=== PATIENT | female | born 1950 | race Caucasian/White ===

== ENCOUNTER 2017-11-07 12:37 | Outpatient (CLI) | payer MEDICARE | END 2017-11-07 12:38 | disposition critical access hospital (66) | LOC: EMS 12:37 | PROVIDERS: ATTEND Surgery | DX: M25.552 Pain in left hip (principal); W22.8XXA Striking against or struck by other objects, initial encounter; Y93.K9 Activity, other involving animal care | CPT/HCPCS: A0425; A0427 ==

== ENCOUNTER 2017-11-07 12:56 | Emergency (ER) | payer BC, MEDICARE ==
--- NOTE | 2017-11-07 13:01 | ED Physician Documentation ---
PD HPI LOWER EXT INJURY - Stated complaint Stated Complaint: L HIP PX - History obtained from History obtained from: Patient - History of Present Illness PD HPI LOW EXT INJURY LOCATION: Left, Hip Type of injury: Blunt / blow (The patient was walking a horse whose feet got tangled in the lead rope or something like that and so the horse started kicking and lurching and push the patient into a fence post. She was beside the horse and got pushed left hip into the post and has pain in the hip and pelvis. She did bite her lip. She denies injury to the head. She is having some pain in the left ribs.) Where injury occurred: Home Timing - onset: Today Timing - duration: Hours (1) Timing - details: Abrupt onset, Still present Improved by: No: Rest Worsened by: Moving, Palpating Associated symptoms: No: Weakness, Numbness Similar symptoms before: Has not had sx before Recently seen: Not recently seen Review of Systems Constitutional: denies: Fever Nose: denies: Rhinorrhea / runny nose, Congestion Throat: denies: Sore throat Cardiac: reports: Chest pain / pressure. denies: Palpitations Respiratory: denies: Cough GI: reports: Nausea (after pain meds from medics (Fentanyl)). denies: Abdominal Pain Neurologic: denies: Focal weakness, Numbness, Near syncope, Headache PD PAST MEDICAL HISTORY - Past Medical History Cardiovascular: None Respiratory: None Neuro: None Endocrine/Autoimmune: None - Allergies Allergies/Adverse Reactions: Allergies Allergy/AdvReac Type Severity Reaction Status Date / Time No Known Drug Allergies Allergy Verified 11/07/17 13:06 PD ED PE NORMAL - Vitals Vital signs reviewed: Yes - General General: Alert and oriented X 3, Well developed/nourished, Other (appears in pain with any pelvic/left hip movement.) - HEENT HEENT: Atraumatic (head not tender. Small lac inner upper lip. She denies teeth feeling chipped nor loose. ) - Neck Neck: Supple, no meningeal sign, No bony TTP, No adenopathy - Cardiac Cardiac: RRR, No murmur - Respiratory Respiratory: Clear bilaterally, Other (mild tender without deformity left mid ribs. ) - Abdomen Abdomen: Normal bowel sounds, Soft, Non tender - Female Female : Deferred - Rectal Rectal: Deferred - Back Back: No CVA TTP, No spinal TTP - Extremities Extremities: Other (left hip and pelvic area markedly tender with light palpation or slight movement. ) - Neuro Neuro: Alert and oriented X 3, No motor deficit, No sensory deficit, Normal speech Results - Rads (name of study) chest Radiology: Prelim report reviewed (no acute injury) pelvis Radiology: Prelim report reviewed (ramus and possible sacral fracture.) pelvic/abd CT Radiology: Prelim report reviewed (pelvic fracture with some bleeding/hematoma. ) head CT Radiology: Prelim report reviewed (no acute) PD MEDICAL DECISION MAKING - ED course Complexity details: reviewed results, re-evaluated patient (pelvic binding with sheet done. ), considered differential, d/w patient, d/w family Departure - Departure Disposition: 02 Transfer Acute Care Hosp Clinical Impression: Pelvic hematoma in female Pelvic ring fracture Qualifiers: Encounter type: initial encounter Fracture type: closed Qualified Code(s): S32.810A - Multiple fractures of pelvis with stable disruption of pelvic ring, initial encounter for closed fracture Condition: Stable Record reviewed to determine appropriate education?: Yes
[2017-11-07] MEDS ORDERED: SODIUM CHLORIDE 0.9% 1,000 ML IV ONE ×2 (13:11→14:59)
[2017-11-07] MEDS ORDERED: ONDANSETRON 4 MG/2 ML VIAL IVP STA ×2 (13:11→14:02)
[2017-11-07] MEDS ORDERED: KETOROLAC 15 MG/ML VIAL IVP STA (13:12)
[2017-11-07] MEDS ORDERED: ACETAMINOPHEN 1,000 MG/100 ML 100 ML IV STA (14:02)
[2017-11-07 14:25] LABS: BASOPHILS # (AUTO) 0.1 10^3/uL (0.0-0.1); BASOPHILS % (AUTO) 0.6 %; EOSINOPHILS % (AUTO) 0.1 %; HGB - HEMOGLOBIN 10.9 g/dL (12.0-16.0); LYMPHOCYTES # (AUTO) 0.6 10^3/uL (1.5-3.5); LYMPHOCYTES % (AUTO) 5.5 %; MEAN CORPUSCULAR HEMOGLOBIN 30.9 pg (27.0-31.0); MEAN CORPUSCULAR HGB CONC 34.1 g/dL (32.0-36.0); MEAN CORPUSCULAR VOLUME 90.6 fL (81.0-99.0); MEAN PLATELET VOLUME 6.9 fL (7.9-10.8); MONOCYTES # (AUTO) 0.7 10^3/uL (0.0-1.0); MONOCYTES % (AUTO) 6.6 %; NEUTROPHILS # (AUTO) 9.8 10^3/uL (1.5-6.6); NEUTROPHILS % (AUTO) 87.2 %; PLT - PLATELET COUNT 200 10^3/uL (130-450); RED BLOOD COUNT 3.52 10^6/uL (4.20-5.40); RED CELL DISTRIBUTION WIDTH 13.2 % (12.0-15.0); WHITE BLOOD COUNT 11.2 x10^3/uL (4.8-10.8)
[2017-11-07] MEDS ORDERED: IOPAMIDOL-300 100 ML VIAL ONE (14:33)
--- NOTE | 2017-11-07 14:38 | XRAY Report ---
Reason: struck into post by horse Procedure Date: 11/07/2017 Accession Number: [id number] / [id number] Procedure: XR - Hip w/Pelvis 2-3V LT CPT Code: FULL RESULT: EXAM: LEFT HIP AND PELVIS RADIOGRAPHY. EXAM DATE: 11/07/2017 02:05 PM. HISTORY: Struck into post by horse. COMPARISONS: 07/19/2011 4:52 PM. TECHNIQUE: 1 view of the pelvis and 1 view of the hip. FINDINGS: Radiographs are limited in positioning. There is contour abnormality along the superior margin of the right sacrum and there are right superior pubic rami fractures as well as an inferior pubic ramus fracture on the right. Compared to the CT in 2011, there is diastases at the pubic symphysis. Evaluation of the right femoral neck is limited and fracture is not excluded, however none is seen. IMPRESSION: Fracture pattern is concerning for an open book pelvic fracture. CRITICAL RESULT: The findings were discussed with Dr. Zee on 11/07/2017 at 2:30 PM. RADIA
[2017-11-07 14:40] LABS: ALBUMIN 3.4 g/dL (3.2-5.5); ALBUMIN/GLOBULIN RATIO 1.4 (1.0-2.2); BILIRUBIN,TOTAL 0.7 mg/dL (0.2-1.0); CALCIUM 8.3 mg/dL (8.5-10.3); CREATININE 0.7 mg/dL (0.4-1.0); MAGNESIUM 1.7 mg/dL (1.7-2.8); TOTAL PROTEIN 5.9 g/dL (6.7-8.2)
--- NOTE | 2017-11-07 15:11 | CT Report ---
Reason: injury, with headache and nausea Procedure Date: 11/07/2017 Accession Number: [id number] / [id number] Procedure: CT - Head W/O CPT Code: FULL RESULT: EXAM: CT HEAD EXAM DATE: 11/07/2017 02:58 PM. CLINICAL HISTORY: Injury, with headache and nausea. COMPARISON: None. TECHNIQUE: Multiaxial CT images were obtained from the foramen magnum to the vertex. Reformats: Sagittal and coronal. IV contrast: None. In accordance with CT protocol optimization, one or more of the following dose reduction techniques were utilized for this exam: automated exposure control, adjustment of mA and/or KV based on patient size, or use of iterative reconstructive technique. FINDINGS: Parenchyma: No intraparenchymal hemorrhage. No evidence of mass, midline shift, or CT findings of infarction. Sesay-white differentiation is distinct. Extraaxial Spaces: Normal for age. No subdural or epidural collections identified. Ventricles: Normal in size and position. Sinuses and Orbits: Imaged paranasal sinuses, orbits, and mastoids show no significant abnormality. Bones: No evidence of fracture or calvarial defect. Other: None. IMPRESSION: No acute intracranial CT abnormality. RADIA
[2017-11-07 15:21] VITALS: BP 107/65
[2017-11-07] MEDS ORDERED: diphenhydrAMINE INJ 50 MG/ML VIAL IVP STA (15:28)
--- NOTE | 2017-11-07 15:35 | CT Report ---
Reason: pelvic fracture on xray Procedure Date: 11/07/2017 Accession Number: [id number] / [id number] Procedure: CT - Abdomen/Pelvis W/ CPT Code: FULL RESULT: EXAM: CT ABDOMEN AND PELVIS EXAM DATE: 11/07/2017 02:58 PM. CLINICAL HISTORY: Fall, pain. COMPARISONS: None. TECHNIQUE: Routine helical CT imaging was performed through the abdomen and pelvis. IV contrast: Isovue-300 100mL. Enteric contrast: No. Reconstructions: Coronal and sagittal. In accordance with CT protocol optimization, one or more of the following dose reduction techniques were utilized for this exam: automated exposure control, adjustment of mA and/or KV based on patient size, or use of iterative reconstructive technique. FINDINGS: Lung Bases: Mild bibasilar apparent dependent changes may represent contusion in the setting of rib fractures. Liver: No traumatic injury. Gallbladder/Bile Ducts: Unremarkable. Spleen: Atraumatic. Pancreas: Normal. Adrenal Glands: Normal. Kidneys: Normal. No masses or hydronephrosis. Peritoneal Cavity/Bowel: Normal. No free fluid, free air or adenopathy. No masses or acute inflammatory process. The appendix is well visualized and normal. Pelvic Organs: The bladder is displaced by hematoma without evidence of rupture. Hematoma is retroperitoneal. Vasculature: There is hematoma formation with abnormal appearance of all vessels in the internal iliac distribution towards the posterior division of the left internal iliac artery. Bones: Nondisplaced right tenth rib fracture, acute. Suspect nondisplaced rib fractures of the right posterior eighth and ninth ribs. Minimally displaced acute fracture of the posterolateral seventh right rib. Minimally displaced posterior left tenth, ninth, and eighth rib fractures. Minimally displaced right L3 transverse process fracture, questionably nondisplaced right L4 transverse process fracture versus congenital finding. Question nondisplaced rib fracture of the right seventh rib. Old nonunited fracture of the right eleventh rib and old healed fracture of the posterior right twelfth rib. Other: Early hematoma along the left external and common iliac artery and iliacus with the hematoma tracking upward of the enlarged left psoas muscle. IMPRESSION: Fracture of the left hemisacrum and left superior and inferior pubic rami, unstable configuration. Hematoma formation in the left hemipelvis extraperitoneally with suspicion of arterial injury in the left internal iliac artery, especially posterior division. Bilateral rib fractures, likely 8 through 10 on the right and 8 through 10 on the left. CRITICAL RESULT: The findings were discussed with Dr. Zee on 11/07/2017 at 3:10 PM and again at 3:33 PM. RADIA
[2017-11-07 15:49] LABS: BILIRUBIN,URINE NEGATIVE (NEGATIVE); GLUCOSE, URINE (UA) NEGATIVE (NEGATIVE); KETONES,URINE (UA) 15 mg/dL (NEGATIVE); LEUKOCYTE ESTERASE, URINE NEGATIVE (NEGATIVE); NITRITE,URINE NEGATIVE (NEGATIVE); OCCULT BLOOD,URINE SMALL (NEGATIVE); PROTEIN,URINE NEGATIVE (NEGATIVE); UROBILINOGEN,URINE 0.2 (NORMAL) E.U./dL (NORMAL)
[2017-11-07 16:04] LABS: BACTERIA,URINE None Seen /HPF (None Seen); CLARITY,URINE CLEAR (CLEAR); SQUAMOUS EPITHELIAL CELL,UR RARE Squamous (<= Few)
[2017-11-07] MEDS ORDERED: IOPAMIDOL-300 100 ML VIAL IVP ONE (16:32)
--- NOTE | 2017-11-07 20:16 | XRAY Report ---
Reason: LT SIDE CHEST PAIN Procedure Date: 11/07/2017 Accession Number: [id number] / [id number] Procedure: XR - Chest 1 View X-Ray CPT Code: 69813 FULL RESULT: EXAM: CHEST RADIOGRAPHY EXAM DATE: 11/07/2017 02:05 PM. CLINICAL HISTORY: Chest pain COMPARISON: XR CHEST 1 VIEWS 07/19/2011 5:08 PM. TECHNIQUE: 1 view. FINDINGS: Lungs/Pleura: No focal opacities evident. No pleural effusion. No pneumothorax. Mediastinum: Normal heart size. There is mild thoracic aortic tortuosity. Other: There are remote right-sided rib fractures. Metallic radiopacity projecting over the left aspect of the upper thoracic spine is presumably extrinsic to the patient. IMPRESSION: No acute intrathoracic plain film abnormality. RADIA
== END 2017-11-07 16:21 | disposition short-term general hospital (02) ==
LOC: EDUNIT# → ED 12:56
DX: S32.039A Unspecified fracture of third lumbar vertebra, initial encounter for closed fracture (principal); S22.43XA Multiple fractures of ribs, bilateral, initial encounter for closed fracture; S32.810A Multiple fractures of pelvis with stable disruption of pelvic ring, initial encounter for closed fracture; S01.511A Laceration without foreign body of lip, initial encounter; W55.12XA Struck by horse, initial encounter; Y93.K1 Activity, walking an animal; Y92.009 Unspecified place in unspecified non-institutional (private) residence as the place of occurrence of the external cause
CPT/HCPCS: 36415; 51702; 70450; 71045; 73502; 74177; 80053; 81001; 83690; 83735; 85025; 96361; 96374; 96375; 96376; 99284; J0131; J1200; Q9967; 81003; 87086

== ENCOUNTER 2017-12-19 17:11 | Outpatient (CLI) | payer MEDICARE | END 2017-12-19 17:12 | disposition critical access hospital (66) | LOC: EMS 17:11 | PROVIDERS: ATTEND Surgery | DX: R42 Dizziness and giddiness (principal) | CPT/HCPCS: A0425; A0429 ==

== ENCOUNTER 2017-12-19 17:28 | Emergency (ER) | payer MEDICARE ==
--- NOTE | 2017-12-19 18:33 | ED Physician Documentation ---
PD HPI HEENT - Stated complaint Stated Complaint: vertigo - Chief complaint Chief Complaint: Neuro - History obtained from History obtained from: Patient - History of Present Illness Timing - onset: Today (when got up) Timing - duration: Hours Timing - details: Abrupt onset, Still present Location: Other (vertigo with spinning clockwise) Associated symptoms: Congestion, Rhinorrhea. No: Fever, Facial swelling, Headache, Cough Similar symptoms before: Has not had sx before Recently seen: Surgery (hip surgery a month ago, doing okay with that. Was on Lovenox prophylactically and just finished it yesterday. Resumed gabapentin yesterday.) Review of Systems Constitutional: denies: Fever, Chills Ears: reports: Loss of hearing (ear feels full). denies: Ear pain Nose: reports: Rhinorrhea / runny nose, Congestion, Sinus pressure / pain Throat: denies: Sore throat Cardiac: denies: Chest pain / pressure, Palpitations Respiratory: denies: Dyspnea, Cough GI: reports: Nausea, Vomiting (with the vertigo). denies: Diarrhea : denies: Dysuria Skin: denies: Rash, Lesions Musculoskeletal: denies: Neck pain, Back pain PD PAST MEDICAL HISTORY - Past Medical History Past Medical History: Yes Cardiovascular: None Respiratory: None Neuro: Migraines Endocrine/Autoimmune: HyPOthyroidism GI: None DIRECTOR OF TESTING: None : None HEENT: None Psych: None Musculoskeletal: None Derm: None - Past Surgical History Past Surgical History: Yes Ortho: Other /DIRECTOR OF TESTING: Hysterectomy - Present Medications Home Medications: Ambulatory Orders Medication Instructions Recorded Confirmed Levothyroxine [Synthroid] 11/07/17 Nortriptyline [Pamelor] 11/07/17 Amoxicillin 500 mg PO TID #20 capsule 12/19/17 Cetirizine [ZyrTEC] 10 mg PO DAILY #15 tablet 12/19/17 Dexamethasone [Decadron] 4 mg PO DAILY #5 tablet 12/19/17 Meclizine [Antivert] 25 mg PO Q6H PRN #30 tablet 12/19/17 Ondansetron Odt [Zofran] 4 mg TL Q6H PRN #10 tablet 12/19/17 - Allergies Allergies/Adverse Reactions: Allergies Allergy/AdvReac Type Severity Reaction Status Date / Time pain meds AdvReac Unknown Uncoded 12/19/17 17:38 - Social History Does the pt smoke?: No Smoking Status: Never smoker Does the pt drink ETOH?: Yes Does the pt have substance abuse?: No - Immunizations Immunizations are current?: Yes - POLST Patient has POLST: No PD ED PE NORMAL - Vitals Vital signs reviewed: Yes - General General: Alert and oriented X 3, Well developed/nourished, Other (appears uncomfortable with any head movement. ) - HEENT HEENT: Atraumatic, PERRL, EOMI (with nystagmus to the right on eye movement. ), Pharynx benign. No: Ears normal (left is okay. Right ear with redness and fluid behing TM.) - Neck Neck: Supple, no meningeal sign, No adenopathy, No bruit - Cardiac Cardiac: RRR, No murmur - Respiratory Respiratory: No respiratory distress, Clear bilaterally - Abdomen Abdomen: Soft, Non tender - Derm Derm: Normal color, Warm and dry - Extremities Extremities: No deformity, No tenderness to palpate, Normal ROM s pain, No calf tenderness / cord - Neuro Neuro: Alert and oriented X 3, piano teacher 2-12 intact, No motor deficit, No sensory deficit, Normal speech, Other Eye Opening: Spontaneous Motor: Obeys Commands Verbal: Oriented GCS Score: 15 Results - Vitals Vitals: Oxygen O2 Source Room air PD MEDICAL DECISION MAKING - ED course Complexity details: re-evaluated patient (got to bathroom and back slowly, with some vertigo still on movement. But is less that it was. ), considered differential (seems positional vertigo. No headache. had resumes gabapentin recently but had taken it before without vertigo. ), d/w patient Departure - Departure Disposition: 01 Home, Self Care Clinical Impression: Positional vertigo Otitis media Qualifiers: Otitis media type: suppurative Chronicity: acute Laterality: right Recurrence: not specified as recurrent Spontaneous tympanic membrane rupture: without spontaneous rupture Qualified Code(s): H66.001 - Acute suppurative otitis media without spontaneous rupture of ear drum, right ear Condition: Stable Record reviewed to determine appropriate education?: Yes Instructions: ED Otitis Media Acute Adult, ED Vertigo Unspecified Prescriptions: Amoxicillin 500 mg PO TID #20 capsule Cetirizine [ZyrTEC] 10 mg PO DAILY #15 tablet Dexamethasone [Decadron] 4 mg PO DAILY #5 tablet Meclizine [Antivert] 25 mg PO Q6H PRN #30 tablet PRN Reason: Vertigo Ondansetron Odt [Zofran] 4 mg TL Q6H PRN #10 tablet PRN Reason: Nausea / Vomiting Comments: Drink lots of fluids. Meclizine 12-1/2-25 mg every 6-8 hours if needed for dizziness. This seems to be in her ear dizziness presume related to the sinus and ear infection. I would anticipated improving over the next couple of days as the infection and sinus pressure are being treated. Amoxicillin 3 times a day for a week for the infection. Decadron anti-inflammatory for sinus and inner ear inflammation. Cetirizine to decrease congestion. Continue your other usual medications. Recheck if not improving over the next couple of days. Activity position as tolerated and move slowly. Discharge Date/Time: 12/19/17 21:09
[2017-12-19] MEDS ORDERED: ONDANSETRON ODT 4 MG TABLET TL STA (19:04)
[2017-12-19] MEDS ORDERED: AMOXICILLIN 250 MG CAPSULE PO STA (19:04)
[2017-12-19] MEDS ORDERED: MECLIZINE 12.5 MG TABLET PO STA ×2 (19:04→20:41)
[2017-12-19] MEDS ORDERED: DEXAMETHASONE 10 MG/ML VIAL PO STA (19:04)
[2017-12-19 20:54] VITALS: BP 125/92
== END 2017-12-19 21:09 | disposition home or self-care (01) ==
LOC: EDUNIT# → ED 17:28
DX: H81.10 Benign paroxysmal vertigo, unspecified ear (principal); H66.001 Acute suppurative otitis media without spontaneous rupture of ear drum, right ear; E03.9 Hypothyroidism, unspecified
CPT/HCPCS: 99283; 99284; A9270; Q0162

== ENCOUNTER 2018-03-26 10:09 | Emergency (ER) | payer MEDICARE ==
[2018-03-26] MEDS ORDERED: SODIUM CHLORIDE 0.9% 1,000 ML IV ONE (12:19)
[2018-03-26] MEDS ORDERED: PROMETHAZINE INJ 12.5 MG in SODIUM CHLORIDE 0.9% 50 ML IV STA (12:19)
[2018-03-26] MEDS ORDERED: ATROPINE 0.4 MG/ML VIAL IVP ONE (12:20)
--- NOTE | 2018-03-26 12:21 | ED Physician Documentation ---
History of Present Illness - Stated complaint Stated Complaint: DIZZY/VOMITING - Chief complaint Chief Complaint: Abd Pain - History obtained from History obtained from: Patient, Family (spouse) - History of Present Illness Timing: How many days ago (few) - Treatment prior to arrival Treatment prior to arrival: Scopolamine patch and sublingual Zofran, without relief. - Additonal information Additional information: The patient is a 67-year-old female with a history of vertigo who presents with worsening vertiginous symptoms despite use of scopolamine patch and sublingual Zofran. She has been vomiting constantly for the past 2 days. She denies fever, abdominal pain, diarrhea, or headache. Her symptoms are worse with movement of her head. She reports upper respiratory symptoms the past few days, with nasal congestion and slight cough. She thinks that is what set off her vertiginous symptoms. Review of Systems Constitutional: denies: Fever Eyes: denies: Decreased vision, Photophobia Ears: denies: Ear pain, Tinnitus/ringing Nose: reports: Congestion Throat: denies: Sore throat Cardiac: denies: Chest pain / pressure Respiratory: reports: Cough. denies: Dyspnea GI: reports: Nausea, Vomiting. denies: Abdominal Pain, Diarrhea : denies: Dysuria Skin: denies: Rash Musculoskeletal: denies: Back pain Neurologic: denies: Focal weakness, Numbness, Headache PD PAST MEDICAL HISTORY - Past Medical History Cardiovascular: None Respiratory: None Neuro: Migraines Endocrine/Autoimmune: HyPOthyroidism GI: None HIDE CURER: None : None HEENT: None Psych: None Musculoskeletal: None Derm: None - Past Surgical History Past Surgical History: Yes Ortho: Other /HIDE CURER: Hysterectomy - Present Medications Home Medications: Ambulatory Orders Medication Instructions Recorded Confirmed Levothyroxine [Synthroid] 1 tab PO QDAC 11/07/17 03/26/18 Nortriptyline [Pamelor] 50 mg PO DAILY 11/07/17 03/26/18 Ondansetron Odt [Zofran] 4 mg TL Q6H PRN #10 tablet 12/19/17 03/26/18 Ondansetron Odt [Zofran] 4 mg TL Q6H PRN #10 tablet 03/26/18 Scopolamine 1 each TD DAILY 03/26/18 03/26/18 - Allergies Allergies/Adverse Reactions: Allergies Allergy/AdvReac Type Severity Reaction Status Date / Time pain meds AdvReac Unknown Uncoded 03/26/18 11:02 - Social History Does the pt smoke?: No Smoking Status: Never smoker Does the pt drink ETOH?: Yes Does the pt have substance abuse?: No - Immunizations Immunizations are current?: Yes - POLST Patient has POLST: No PD ED PE NORMAL - Vitals Vital signs reviewed: Yes (normal) - General General: Alert and oriented X 3, Well developed/nourished, Other (Holding her head still.) - HEENT HEENT: Atraumatic, PERRL, EOMI, Ears normal, Pharynx benign, Other (No nystagmus.) - Neck Neck: Supple, no meningeal sign, No adenopathy - Cardiac Cardiac: RRR - Respiratory Respiratory: No respiratory distress, Clear bilaterally - Abdomen Abdomen: Soft, Non tender - Back Back: No CVA TTP - Derm Derm: No rash - Extremities Extremities: No edema, No calf tenderness / cord - Neuro Neuro: Alert and oriented X 3, No motor deficit, No sensory deficit Results - Vitals Vitals: Oxygen O2 Source Room air - EKG (time done) 10:30 Rate: Rate (enter#) (86) Rhythm: NSR [place]: Normal Intervals: Normal MA QRS: Normal Ischemia: Normal ST segments Computer interpretation: Agree with computer - Labs Labs: Laboratory Tests 03/26/18 12:35 Sodium 134 L Potassium 4.0 Chloride 101 Carbon Dioxide 23 Anion Gap 10.0 BUN 12 Creatinine 0.6 Estimated GFR (MDRD) 100 Glucose 93 Calcium 9.6 PD MEDICAL DECISION MAKING - ED course Complexity details: reviewed results, re-evaluated patient, considered differential, d/w patient, d/w family ED course: The patient's presentation is most consistent with positional vertigo, with vomiting. Her presentation does not suggest a cerebellar cause of her vertiginous symptoms. Treatment in the emergency department included administration of normal saline 1 L IV, atropine 0.4 mg IV, and Phenergan 12.5 mg IV. Her symptoms completely resolved with the above treatment. Prior to discharge she demonstrates ability to ambulate without nausea or vertigo. I discussed with her and her the diagnosis, symptomatic treatment and outpatient follow-up, as well as potentially worrisome signs or symptoms that should prompt reevaluation in the emergency department. She is being discharged with prescription for Zofran. Departure - Departure Disposition: 01 Home, Self Care Clinical Impression: Positional vertigo Condition: Stable Instructions: ED Vertigo Unspecified Follow-Up: Xavier Perkins MD [Primary Care Provider] - Prescriptions: Ondansetron Odt [Zofran] 4 mg TL Q6H PRN #10 tablet PRN Reason: Nausea / Vomiting Comments: Drink plenty of fluids. Use scopolamine patch as previously prescribed. You can use sublingual Zofran as prescribed if needed for nausea. Follow-up with your primary physician within 1-2 weeks. Call to schedule an appointment. Return to the emergency department if you develop persistent vomiting, or otherwise worsening symptoms. Discharge Date/Time: 03/26/18 13:35
[2018-03-26 12:56] LABS: CALCIUM 9.6 mg/dL (8.5-10.3); CREATININE 0.6 mg/dL (0.4-1.0)
[2018-03-26 13:27] VITALS: BP 115/75
== END 2018-03-26 13:35 | disposition home or self-care (01) ==
LOC: ED 10:09
DX: H81.10 Benign paroxysmal vertigo, unspecified ear (principal); E03.9 Hypothyroidism, unspecified
CPT/HCPCS: 36415; 80048; 93005; 96365; 96375; 99283; J7040

== ENCOUNTER 2020-02-28 11:06 | Emergency (ER) | payer MEDICARE ==
[2020-02-28 11:51] LABS: BASOPHILS % (AUTO) 0.5 %; EOSINOPHILS % (AUTO) 0.2 %; HGB - HEMOGLOBIN 14.4 g/dL (12.0-16.0); MEAN CORPUSCULAR HEMOGLOBIN 30.4 pg (27.0-31.0); MEAN CORPUSCULAR HGB CONC 32.8 g/dL (32.0-36.0); MEAN CORPUSCULAR VOLUME 92.6 fL (81.0-99.0); MEAN PLATELET VOLUME 9.1 fL (7.9-10.8); MONOCYTES # (AUTO) 0.5 10^3/uL (0.0-1.0); MONOCYTES % (AUTO) 11.7 %; NEUTROPHILS # (AUTO) 2.6 10^3/uL (1.5-6.6); NEUTROPHILS % (AUTO) 62.1 %; PLT - PLATELET COUNT 223 10^3/uL (130-450); RED BLOOD COUNT 4.74 10^6/uL (4.20-5.40); RED CELL DISTRIBUTION WIDTH 12.3 % (12.0-15.0); WHITE BLOOD COUNT 4.1 x10^3/uL (4.8-10.8)
[2020-02-28 12:03] LABS: ALBUMIN 4.6 g/dL (3.2-5.5); ALBUMIN/GLOBULIN RATIO 1.5 (1.0-2.2); BILIRUBIN,TOTAL 0.9 mg/dL (0.2-1.0); CALCIUM 9.8 mg/dL (8.5-10.3); CREATININE 0.9 mg/dL (0.4-1.0); TOTAL PROTEIN 7.6 g/dL (6.7-8.2)
--- NOTE | 2020-02-28 12:22 | XRAY Report ---
PROCEDURE: Chest 1 View X-Ray INDICATIONS: Chest pain TECHNIQUE: One view of the chest was acquired. COMPARISON: 11/07/2017 chest single view. FINDINGS: Surgical changes and devices: None. Lungs and pleura: No pleural effusions or pneumothorax. Lungs are clear. Mediastinum: Mediastinal contours appear normal. Heart size is normal. Bones and chest wall: No suspicious bony lesions. Healed rib fractures overlying the right scapula m id body. Overlying soft tissues appear unremarkable. IMPRESSION: Excellent inspiratory volume, no pneumonia found. Suspect presence of several healed rib fractures la teral right upper chest. No acute trauma found. Reviewed by: Jad Nicole MD on 02/28/2020 12:21 PM PST Approved by: Jad Nicole MD on 02/28/2020 12:21 PM PST Station ID: [id number]
[2020-02-28] MEDS ORDERED: MAGNESIUM CITRATE 296 ML BOTTLE PO STA (12:27)
[2020-02-28] MEDS ORDERED: SODIUM CHLORIDE 0.9% 1,000 ML IV STA ×2 (12:27)
[2020-02-28] MEDS ORDERED: ONDANSETRON 4 MG/2 ML VIAL IVP STA (12:28)
[2020-02-28] MEDS ORDERED: MECLIZINE 12.5 MG TABLET PO STA (12:28)
--- NOTE | 2020-02-28 12:34 | ED Physician Documentation ---
History of Present Illness - Stated complaint Stated Complaint: DIZZY/IRREGULAR HEART BEAT - Chief complaint Chief Complaint: Cardiac - History obtained from History obtained from: Patient - History of Present Illness Timing: Today Pain level max: 0 Pain level now: 0 - Additonal information Additional information: 69-year-old female presents to the emergency department complaining of intermittent palpitations for the past several months. She states she feels a fluttering in her chest. Nothing seems to make it better or worse. She also complains of vertigo. This has been an intermittent problem since suffering a head injury several years ago along with rib fractures. She states that the room feels like it is spinning, worse with movement and better with rest. No headache. No fever. No neck or back pain. Patient also complains of constipation for the past 2 weeks. She states her diet has not been very good recently and that she has a history of chronic constipation. No fevers. No chills. Some nausea but no vomiting. Review of Systems Ten Systems: 10 systems reviewed and negative Constitutional: denies: Fever, Chills Nose: denies: Rhinorrhea / runny nose, Congestion Throat: denies: Sore throat Cardiac: reports: Palpitations. denies: Chest pain / pressure Respiratory: denies: Cough Skin: denies: Rash Musculoskeletal: denies: Neck pain, Back pain Neurologic: denies: Headache PD PAST MEDICAL HISTORY - Past Medical History Past Medical History: Yes Cardiovascular: Atrial fibrillation Respiratory: None Neuro: Migraines, Other Endocrine/Autoimmune: HyPOthyroidism GI: None BEER RUNNER: None : None HEENT: None Psych: None Musculoskeletal: None Derm: None Other Past Medical History: concussion, 7 rib fxs, pelvis fx from horse accident 2 years ago. - Past Surgical History Past Surgical History: Yes Ortho: Other /BEER RUNNER: Hysterectomy - Present Medications Home Medications: Ambulatory Orders Medication Instructions Recorded Confirmed Levothyroxine [Synthroid] 1 tab PO QDAC 11/07/17 03/26/18 Nortriptyline [Pamelor] 50 mg PO DAILY 11/07/17 03/26/18 Ondansetron Odt [Zofran] 4 mg TL Q6H PRN #10 tablet 12/19/17 03/26/18 Ondansetron Odt [Zofran] 4 mg TL Q6H PRN #10 tablet 02/18/19 Scopolamine 1 each TD DAILY 03/26/18 03/26/18 Meclizine HCl [Antivert] 25 - 50 mg PO Q6H PRN #30 tablet 02/28/20 - Allergies Allergies/Adverse Reactions: Allergies Allergy/AdvReac Type Severity Reaction Status Date / Time pain meds AdvReac Unknown Uncoded 02/28/20 11:10 - Social History Does the pt smoke?: No Smoking Status: Never smoker Does the pt drink ETOH?: Yes Does the pt have substance abuse?: No - Immunizations Immunizations are current?: Yes - POLST Patient has POLST: No PD ED PE NORMAL - Vitals Vital signs reviewed: Yes - General General: Alert and oriented X 3, No acute distress - HEENT HEENT: Moist mucous membranes - Neck Neck: Supple, no meningeal sign - Cardiac Cardiac: RRR, Strong equal pulses - Respiratory Respiratory: No respiratory distress, Clear bilaterally - Abdomen Abdomen: Soft, Other (Diffusely tender to palpation without peritoneal signs) - Derm Derm: Warm and dry - Extremities Extremities: No edema - Neuro Neuro: Alert and oriented X 3 Results - Vitals Vitals: Vital Signs - 24 hr 02/28/20 02/28/20 02/28/20 11:10 12:39 13:00 Temperature 36.6 C 37.1 C Heart Rate 82 70 59 L Respiratory 18 16 19 Rate Blood Pressure 127/76 121/79 113/73 O2 Saturation 97 98 100 02/28/20 14:02 Temperature 36.4 C L Heart Rate 55 L Respiratory 16 Rate Blood Pressure 117/71 O2 Saturation 99 Oxygen O2 Source Room air - EKG (time done) 1116 Rate: Rate (enter#) (75) Rhythm: NSR [place]: Normal Intervals: Normal LA QRS: Normal Ischemia: Normal ST segments Computer interpretation: Agree with computer - Labs Labs: Laboratory Tests 02/28/20 02/28/20 02/28/20 11:30 11:30 11:39 WBC 4.1 L RBC 4.74 Hgb 14.4 Hct 43.9 MCV 92.6 MCH 30.4 MCHC 32.8 RDW 12.3 Plt Count 223 MPV 9.1 Neut # (Auto) 2.6 Lymph # (Auto) 1.0 L [place] # (Auto) 0.5 Eos # (Auto) 0.0 Baso # (Auto) 0.0 Absolute Nucleated RBC 0.00 Nucleated RBC % 0.0 Sodium Potassium Chloride Carbon Dioxide Anion Gap BUN Creatinine Estimated GFR (MDRD) Glucose Calcium Phosphorus 3.1 Magnesium 2.1 Total Bilirubin AST ALT Alkaline Phosphatase Troponin I High Sens Total Protein Albumin Globulin Albumin/Globulin Ratio Lipase TSH 0.53 Free T4 1.42 02/28/20 02/28/20 11:39 11:39 WBC RBC Hgb Hct MCV MCH MCHC RDW Plt Count MPV Neut # (Auto) Lymph # (Auto) [place] # (Auto) Eos # (Auto) Baso # (Auto) Absolute Nucleated RBC Nucleated RBC % Sodium 136 Potassium 3.7 Chloride 99 L Carbon Dioxide 27 Anion Gap 10.0 BUN 14 Creatinine 0.9 Estimated GFR (MDRD) 62 L Glucose 104 H Calcium 9.8 Phosphorus Magnesium Total Bilirubin 0.9 AST 55 H ALT 68 H Alkaline Phosphatase 67 Troponin I High Sens < 2.3 L Total Protein 7.6 Albumin 4.6 Globulin 3.0 Albumin/Globulin Ratio 1.5 Lipase 35 TSH Free T4 - Rads (name of study) cxr Radiology: Prelim report reviewed, EMP read contemporaneously, See rad report (no acute abnormality) CT abdomen and pelvis Radiology: Prelim report reviewed, EMP read contemporaneously, See rad report PD MEDICAL DECISION MAKING - ED course Complexity details: reviewed results, considered differential, d/w patient ED course: Unclear etiology the patient's symptoms other than PVCs causing the palpitations. Given IV fluids and meclizine. 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 Horizontal nystagmus to the right and positive Hallpike to the right. No evidence of stroke. No neurological deficits. NIH stroke scale of 0. She does have a left-sided ovarian cyst on CT, she will follow this up as an outpatient with her doctor. Patient is well-appearing, nontoxic. Afebrile. Patient has an appointment with her body press operator on Monday. Patient counseled regarding signs and symptoms for which I believe and urgent re-evaluation would be necessary. Patient with good understanding of and agreement to plan and is comfortable going home at this time This document was made in part using voice recognition software. While efforts are made to proofread this document, sound alike and grammatical errors may occur. IMPRESSION: 1. No acute abnormality is identified in the abdomen or pelvis. Normal appendix. Moderate stool is seen throughout the colon. 2. Left ovarian cyst has increased in size when compared to the prior CT from 11/07/2017, now measuring 5.1 cm in maximum dimension. Recommend pelvic ultrasound for evaluation. Departure - Departure Disposition: 01 Home, Self Care Clinical Impression: Premature ventricular contraction, Palpitations, Vertigo Constipation Qualifiers: Constipation type: unspecified constipation type Qualified Code(s): K59.00 - Constipation, unspecified Condition: Good Instructions: ED Constipation, ED Palpitations Follow-Up: Quentin Espinosa MD [Primary Care Provider] - Within 1 week Prescriptions: Meclizine HCl [Antivert] 25 - 50 mg PO Q6H PRN #30 tablet PRN Reason: Vertigo Comments: You are having premature ventricular contractions on the heart monitor. This is causing the fluttering in your chest. Follow-up with your body press operator, Dr. Kilgore on Monday as scheduled to discuss medication for this. You also have a 5 cm ovarian cyst that needs follow-up with a pelvic ultrasound. This is slightly larger than 2 years ago when it was present on your CT scan. Drink plenty of water. Avoid caffeine, stress. Return if you worsen. Discharge Date/Time: 02/28/20 14:30
[2020-02-28] MEDS ORDERED: IOVERSOL 320 100 ML VIAL IVP ONE ×2 (12:49→13:26)
[2020-02-28 12:59] LABS: MAGNESIUM 2.1 mg/dL (1.7-2.8); PHOSPHORUS 3.1 mg/dL (2.5-4.6)
[2020-02-28 13:09] LABS: THYROID STIMULATING HORMONE 0.53 uIU/mL (0.34-5.60)
[2020-02-28 13:11] LABS: FREE T4 (FREE THYROXINE) 1.42 ng/dL (0.58-1.64)
[2020-02-28] MEDS ORDERED: MAGNESIUM SULFATE 2 GRAM 2 GM/50 ML BAG IV ONE (13:18)
--- NOTE | 2020-02-28 13:31 | CT Report ---
PROCEDURE: Abdomen/Pelvis W INDICATIONS: diffuse abd pain CONTRAST: IV CONTRAST: Isovue 370 ml: 100 PO CONTRAST: *NO PO CONTRAST TECHNIQUE: After the administration of intravenous contrast, 5 mm thick sections acquired from the diaphragms to the symphysis. 5 mm thick coronal and sagittal reformats were acquired. For radiation dose reducti on, the following was used: automated exposure control, adjustment of mA and/or kV according to juanpablo ent size. COMPARISON: CT abdomen/pelvis 11/07/2017 FINDINGS: Image quality: Excellent. ABDOMEN: Lung bases: Lung bases are clear. Heart size is normal. Solid organs: Liver and spleen are normal in size and enhancement. A 7 mm hypoattenuating lesion ad jacent to the falciform ligament is too small to characterize, but most likely represents a cyst. Gal lbladder appears normal. Biliary system is non dilated. Pancreas enhances normally. No adrenal nod ules. Kidneys demonstrate normal size and enhancement, without hydronephrosis. Peritoneum and bowel: Bowel loops demonstrate normal wall thickness and caliber. Moderate stool is seen throughout the colon. Normal appendix. No free fluid or air. Nodes and vessels: No retroperitoneal or mesenteric adenopathy by size criteria. Aorta and inferior vena cava are normal in size. Miscellaneous: No ventral hernias. PELVIS: Genitourinary: Bladder wall thickness is normal. Status post hysterectomy. A left ovarian cyst mayi ures 5.1 x 4.0 cm, increased in size when compared to the CT from 11/07/2017 when it measured 3.7 x 2. 6 cm. Miscellaneous: No inguinal hernias or adenopathy. Bones: No suspicious bony lesions. No vertebral body compression fractures mild healed fracture def ormities are seen in the bilateral lower ribs. There is S-shaped curvature of the lumbar spine with p rogressive degenerative changes when compared to the prior CT from 11/07/2017. Metallic fixation hardw are is seen in the left pelvis extending to the left sacrum. IMPRESSION: 1. No acute abnormality is identified in the abdomen or pelvis. Normal appendix. Moderate stool is s een throughout the colon. 2. Left ovarian cyst has increased in size when compared to the prior CT from 11/07/2017, now measuri ng 5.1 cm in maximum dimension. Recommend pelvic ultrasound for evaluation. Reviewed by: Cooper Oviedo MD on 02/28/2020 1:29 PM PST Approved by: Cooper Oviedo MD on 02/28/2020 1:29 PM PST Station ID: [id number]
[2020-02-28 14:03] VITALS: BP 117/71
== END 2020-02-28 14:30 | disposition home or self-care (01) ==
LOC: ED 11:06
DX: I49.3 Ventricular premature depolarization (principal); R42 Dizziness and giddiness; K59.00 Constipation, unspecified; N83.202 Unspecified ovarian cyst, left side
CPT/HCPCS: 36415; 71045; 74177; 80053; 83690; 83735; 84100; 84439; 84443; 84484; 85025; 93005; 96365; 96375; 99284; A9270; Q9967

== ENCOUNTER 2020-07-03 08:00 | Outpatient (CLI) | payer MEDICARE | END 2020-07-03 23:59 | disposition home or self-care (01) | LOC: LAB.N 08:00 | PROVIDERS: ATTEND Family Medicine | DX: J02.9 Acute pharyngitis, unspecified (principal); Z20.822 Contact with and (suspected) exposure to COVID-19 ==

== ENCOUNTER 2020-09-08 08:00 | Outpatient (CLI) | payer MEDICARE ==
[2020-09-08 13:15] LABS: BASOPHILS % (AUTO) 0.9 %; EOSINOPHILS # (AUTO) 0.1 10^3/uL (0.0-0.7); HCT - HEMATOCRIT 40.2 % (37.0-47.0); HGB - HEMOGLOBIN 13.1 g/dL (12.0-16.0); LYMPHOCYTES # (AUTO) 1.3 10^3/uL (1.5-3.5); LYMPHOCYTES % (AUTO) 36.4 %; MEAN CORPUSCULAR HEMOGLOBIN 30.8 pg (27.0-31.0); MEAN CORPUSCULAR HGB CONC 32.6 g/dL (32.0-36.0); MEAN CORPUSCULAR VOLUME 94.4 fL (81.0-99.0); MEAN PLATELET VOLUME 9.6 fL (7.9-10.8); MONOCYTES # (AUTO) 0.4 10^3/uL (0.0-1.0); MONOCYTES % (AUTO) 10.2 %; NEUTROPHILS # (AUTO) 1.8 10^3/uL (1.5-6.6); NEUTROPHILS % (AUTO) 50.5 %; PLT - PLATELET COUNT 229 10^3/uL (130-450); RED BLOOD COUNT 4.26 10^6/uL (4.20-5.40); RED CELL DISTRIBUTION WIDTH 13.6 % (12.0-15.0); WHITE BLOOD COUNT 3.5 x10^3/uL (4.8-10.8)
[2020-09-08 13:40] LABS: ALBUMIN 4.1 g/dL (3.2-5.5); ALBUMIN/GLOBULIN RATIO 1.3 (1.0-2.2); ALKALINE PHOSPHATASE 69 IU/L (42-121); ALT ALANINE AMINOTRANSFERASE 63 IU/L (10-60); AST ASPARTATE AMINOTRANSFERASE 47 IU/L (10-42); BILIRUBIN,TOTAL 0.6 mg/dL (0.2-1.0); BUN - BLOOD UREA NITROGEN 20 mg/dL (6-20); CALCIUM 9.4 mg/dL (8.5-10.3); CARBON DIOXIDE - CO2 27 mmol/L (21-32); CHLORIDE 102 mmol/L (101-111); CHOL/HDL RATIO 4.2 (<4.4); CHOLESTEROL 239 mg/dL; CREATININE 0.7 mg/dL (0.4-1.0); GFR - MDRD 83 (>89); GLUCOSE 83 mg/dL (70-100); HDL CHOLESTEROL 57 mg/dL; LDL CHOLESTEROL,CALCULATED 166 mg/dL; LDL/HDL RATIO 2.9 (<4.4); POTASSIUM 4.1 mmol/L (3.5-5.0); SODIUM 138 mmol/L (135-145); TOTAL PROTEIN 7.2 g/dL (6.7-8.2); TRIGLYCERIDES 80 mg/dL; VLDL CHOLESTEROL 16 mg/dL
[2020-09-08 13:51] LABS: THYROID STIMULATING HORMONE 4.91 uIU/mL (0.34-5.60)
== END 2020-09-08 23:59 | disposition home or self-care (01) ==
LOC: LAB.WCP 08:00
PROVIDERS: ATTEND Family Medicine
DX: I10 Essential (primary) hypertension (principal); K59.09 Other constipation; R42 Dizziness and giddiness; E03.9 Hypothyroidism, unspecified
CPT/HCPCS: 36415; 80053; 80061; 83721; 84443; 85025

== ENCOUNTER 2020-10-15 14:30 | Outpatient (CLI) | payer MEDICARE | END 2020-10-15 23:59 | disposition home or self-care (01) | LOC: LAB.N 14:30 | PROVIDERS: ATTEND Nurse Practitioner | DX: R30.0 Dysuria (principal) | CPT/HCPCS: 87086 ==

== ENCOUNTER 2021-04-13 09:23 | Outpatient (CLI) | payer MEDICARE ==
[2021-04-13 09:50] LABS: BILIRUBIN,URINE NEGATIVE (NEGATIVE); GLUCOSE, URINE (UA) NEGATIVE (NEGATIVE); KETONES,URINE (UA) NEGATIVE (NEGATIVE); LEUKOCYTE ESTERASE, URINE NEGATIVE (NEGATIVE); NITRITE,URINE NEGATIVE (NEGATIVE); OCCULT BLOOD,URINE NEGATIVE (NEGATIVE); PROTEIN,URINE NEGATIVE (NEGATIVE); UROBILINOGEN,URINE 0.2 (NORMAL) E.U./dL (NORMAL)
[2021-04-13 09:51] LABS: BASOPHILS % (AUTO) 0.8 %; EOSINOPHILS % (AUTO) 1.6 %; HCT - HEMATOCRIT 39.6 % (37.0-47.0); HGB - HEMOGLOBIN 13.3 g/dL (12.0-16.0); LYMPHOCYTES # (AUTO) 1.1 10^3/uL (1.5-3.5); LYMPHOCYTES % (AUTO) 42.2 %; MEAN CORPUSCULAR HEMOGLOBIN 31.2 pg (27.0-31.0); MEAN CORPUSCULAR HGB CONC 33.6 g/dL (32.0-36.0); MEAN PLATELET VOLUME 8.9 fL (7.9-10.8); MONOCYTES # (AUTO) 0.3 10^3/uL (0.0-1.0); MONOCYTES % (AUTO) 12.4 %; NEUTROPHILS # (AUTO) 1.1 10^3/uL (1.5-6.6); PLT - PLATELET COUNT 195 10^3/uL (130-450); RED BLOOD COUNT 4.26 10^6/uL (4.20-5.40); RED CELL DISTRIBUTION WIDTH 12.5 % (12.0-15.0); WHITE BLOOD COUNT 2.5 x10^3/uL (4.8-10.8)
[2021-04-13 09:58] LABS: BACTERIA,URINE Rare /HPF (None Seen); CLARITY,URINE HAZY (CLEAR); RBC,URINE None Seen /HPF (0-5); SQUAMOUS EPITHELIAL CELL,UR MANY Squamous (<= Few); WBC,URINE 0-3 /HPF (0-5)
[2021-04-13 10:09] LABS: ALBUMIN/GLOBULIN RATIO 1.3 (1.0-2.2); ALKALINE PHOSPHATASE 55 IU/L (42-121); ALT ALANINE AMINOTRANSFERASE 50 IU/L (10-60); AST ASPARTATE AMINOTRANSFERASE 32 IU/L (10-42); BILIRUBIN,TOTAL 0.4 mg/dL (0.2-1.0); BUN - BLOOD UREA NITROGEN 10 mg/dL (6-20); CALCIUM 8.9 mg/dL (8.5-10.3); CARBON DIOXIDE - CO2 26 mmol/L (21-32); CHLORIDE 104 mmol/L (101-111); CHOL/HDL RATIO 4.2 (<4.4); CHOLESTEROL 235 mg/dL; CREATININE 0.6 mg/dL (0.4-1.0); GFR - MDRD 99 (>89); GLUCOSE 88 mg/dL (70-100); HDL CHOLESTEROL 56 mg/dL; LDL CHOLESTEROL,CALCULATED 156 mg/dL; LDL/HDL RATIO 2.8 (<4.4); POTASSIUM 3.9 mmol/L (3.5-5.0); SODIUM 137 mmol/L (135-145); TOTAL PROTEIN 7.1 g/dL (6.7-8.2); TRIGLYCERIDES 116 mg/dL; VLDL CHOLESTEROL 23 mg/dL
[2021-04-13 10:19] LABS: THYROID STIMULATING HORMONE 5.14 uIU/mL (0.34-5.60)
[2021-04-13 10:28] LABS: PLATELET ESTIMATE, MANUAL NORMAL (130-450,000) (NORMAL); PLATELET MORPHOLOGY NORMAL APPEARANCE (NORMAL); RBC MORPHOLOGY (MULTIPLE) NORMAL APPEARANCE (NORMAL); SLIDE REVIEW? Indicated; WBC MORPHOLOGY (MULTIPLE) NORMAL APPEARANCE (NORMAL)
== END 2021-04-13 09:24 | disposition home or self-care (01) ==
LOC: LAB 09:23
PROVIDERS: ATTEND Family Medicine
DX: E03.9 Hypothyroidism, unspecified (principal); I10 Essential (primary) hypertension; F40.232 Fear of other medical care; R63.4 Abnormal weight loss; N95.2 Postmenopausal atrophic vaginitis; R42 Dizziness and giddiness; N39.8 Other specified disorders of urinary system
CPT/HCPCS: 36415; 80053; 80061; 81001; 83721; 84443; 85025

== ENCOUNTER 2022-08-02 10:23 | Outpatient (CLI) | payer MEDICARE ==
[2022-08-02 10:39] LABS: BASOPHILS % (AUTO) 0.9 %; EOSINOPHILS # (AUTO) 0.1 10^3/uL (0.0-0.7); EOSINOPHILS % (AUTO) 1.8 %; HGB - HEMOGLOBIN 13.4 g/dL (12.0-16.0); LYMPHOCYTES % (AUTO) 30.8 %; MEAN CORPUSCULAR HEMOGLOBIN 31.3 pg (27.0-31.0); MEAN CORPUSCULAR HGB CONC 33.5 g/dL (32.0-36.0); MEAN CORPUSCULAR VOLUME 93.5 fL (81.0-99.0); MEAN PLATELET VOLUME 8.7 fL (7.9-10.8); MONOCYTES # (AUTO) 0.5 10^3/uL (0.0-1.0); MONOCYTES % (AUTO) 14.3 %; NEUTROPHILS # (AUTO) 1.7 10^3/uL (1.5-6.6); NEUTROPHILS % (AUTO) 51.9 %; PLT - PLATELET COUNT 173 10^3/uL (130-450); RED BLOOD COUNT 4.28 10^6/uL (4.20-5.40); RED CELL DISTRIBUTION WIDTH 12.8 % (12.0-15.0); WHITE BLOOD COUNT 3.3 x10^3/uL (4.8-10.8)
[2022-08-02 10:57] LABS: ALBUMIN 3.9 g/dL (3.2-5.5); ALBUMIN/GLOBULIN RATIO 1.1 (1.0-2.2); ALKALINE PHOSPHATASE 50 IU/L (42-121); ALT ALANINE AMINOTRANSFERASE 76 IU/L (10-60); AST ASPARTATE AMINOTRANSFERASE 66 IU/L (10-42); BILIRUBIN,TOTAL 0.6 mg/dL (0.2-1.0); BUN - BLOOD UREA NITROGEN 11 mg/dL (6-20); CARBON DIOXIDE - CO2 28 mmol/L (21-32); CHLORIDE 105 mmol/L (101-111); CHOL/HDL RATIO 3.7 (<4.4); CHOLESTEROL 221 mg/dL; CREATININE 0.6 mg/dL (0.4-1.0); GFR - MDRD 99 (>89); GLUCOSE 91 mg/dL (70-100); HDL CHOLESTEROL 59 mg/dL; LDL CHOLESTEROL,CALCULATED 138 mg/dL; LDL/HDL RATIO 2.3 (<4.4); SODIUM 138 mmol/L (135-145); TOTAL PROTEIN 7.3 g/dL (6.7-8.2); TRIGLYCERIDES 119 mg/dL; VLDL CHOLESTEROL 24 mg/dL
[2022-08-02 11:09] LABS: THYROID STIMULATING HORMONE 0.59 uIU/mL (0.34-5.60)
[2022-08-02 11:10] LABS: FREE T3 2.61 pg/mL (2.5-3.9)
[2022-08-02 11:11] LABS: FREE T4 (FREE THYROXINE) 1.02 ng/dL (0.58-1.64)
== END 2022-08-02 10:24 | disposition home or self-care (01) ==
LOC: LAB 10:23
PROVIDERS: ATTEND Family Medicine
DX: E03.9 Hypothyroidism, unspecified (principal); M54.89 Other dorsalgia; G43.909 Migraine, unspecified, not intractable, without status migrainosus; R42 Dizziness and giddiness; M51.37 Other intervertebral disc degeneration, lumbosacral region; I49.3 Ventricular premature depolarization; I10 Essential (primary) hypertension; N95.2 Postmenopausal atrophic vaginitis; N39.8 Other specified disorders of urinary system
CPT/HCPCS: 36415; 80053; 80061; 83721; 84439; 84443; 84481; 85025

== ENCOUNTER 2023-09-18 10:25 | Outpatient (CLI) | payer MEDICARE ==
[2023-09-18 10:55] LABS: BASOPHILS % (AUTO) 0.7 %; EOSINOPHILS # (AUTO) 0.1 10^3/uL (0.0-0.7); EOSINOPHILS % (AUTO) 1.4 %; HGB - HEMOGLOBIN 13.3 g/dL (12.0-16.0); LYMPHOCYTES # (AUTO) 1.3 10^3/uL (1.5-3.5); LYMPHOCYTES % (AUTO) 30.7 %; MEAN CORPUSCULAR HEMOGLOBIN 31.7 pg (27.0-31.0); MEAN CORPUSCULAR HGB CONC 33.3 g/dL (32.0-36.0); MEAN CORPUSCULAR VOLUME 95.5 fL (81.0-99.0); MEAN PLATELET VOLUME 8.9 fL (7.9-10.8); MONOCYTES # (AUTO) 0.5 10^3/uL (0.0-1.0); MONOCYTES % (AUTO) 11.6 %; NEUTROPHILS # (AUTO) 2.4 10^3/uL (1.5-6.6); NEUTROPHILS % (AUTO) 55.4 %; PLT - PLATELET COUNT 207 10^3/uL (130-450); RED BLOOD COUNT 4.19 10^6/uL (4.20-5.40); RED CELL DISTRIBUTION WIDTH 13.1 % (12.0-15.0); WHITE BLOOD COUNT 4.2 x10^3/uL (4.8-10.8)
[2023-09-18 11:13] LABS: ALBUMIN 4.1 g/dL (3.2-5.5); ALBUMIN/GLOBULIN RATIO 1.3 (1.0-2.2); ALKALINE PHOSPHATASE 60 IU/L (42-121); ALT ALANINE AMINOTRANSFERASE 34 IU/L (10-60); AST ASPARTATE AMINOTRANSFERASE 32 IU/L (10-42); BILIRUBIN,TOTAL 0.4 mg/dL (0.2-1.0); BUN - BLOOD UREA NITROGEN 14 mg/dL (6-20); CARBON DIOXIDE - CO2 28 mmol/L (21-32); CHLORIDE 106 mmol/L (101-111); CHOL/HDL RATIO 3.5 (<4.4); CHOLESTEROL 198 mg/dL; CREATININE 0.6 mg/dL (0.6-1.3); GFR - MDRD 98 (>89); GLUCOSE 92 mg/dL (74-104); HDL CHOLESTEROL 56 mg/dL; LDL CHOLESTEROL,CALCULATED 117 mg/dL; LDL/HDL RATIO 2.1 (<4.4); POTASSIUM 4.2 mmol/L (3.5-4.5); SODIUM 138 mmol/L (135-145); TOTAL PROTEIN 7.2 g/dL (6.4-8.9); TRIGLYCERIDES 124 mg/dL; VLDL CHOLESTEROL 25 mg/dL
[2023-09-18 11:27] LABS: THYROID STIMULATING HORMONE 1.09 uIU/mL (0.34-5.60)
== END 2023-09-18 10:26 | disposition home or self-care (01) ==
LOC: LAB 10:25
PROVIDERS: ATTEND Family Medicine
DX: M54.16 Radiculopathy, lumbar region (principal); M41.86 Other forms of scoliosis, lumbar region; N95.2 Postmenopausal atrophic vaginitis; R00.0 Tachycardia, unspecified
CPT/HCPCS: 36415; 80053; 80061; 83721; 84443; 85025